=== PATIENT | male | born 1975 | race Caucasian/White ===

== ENCOUNTER 2017-06-29 23:20 | Emergency (ER) | payer SELFPAY ==
[2017-06-30] MEDS ORDERED: MOTRIN PO ONE ×2 (03:13→03:17)
--- NOTE | 2017-06-30 03:15 | Emergency Department Report ---
ED Extremity Problem HPI - General Chief complaint: Extremity Injury, Lower Stated complaint: BILATERAL FEET PAIN Time Seen by Provider: 06/30/17 03:00 Source: patient Mode of arrival: Ambulatory Limitations: No Limitations - History of Present Illness Initial comments: 42-year-old -[place] male comes in complaining of feet fungus and requesting information on substance abuse facilities. Patient denies any chest pain shortness of breathing or nausea no vomiting as admitted to abdominal cramping is intermittent. He reports he is able to hold down foods drinking and eating well. He reports that his feet have a fungus has not tried any over- the-counter medication. Past medical history of substance abuse. Has no other past medical history. Currently takes no medications on a daily basis has no known drug allergies. MD Complaint: extremity pain -: week(s) (2) Location: bilateral lower extremity, toe History of Same: No Severity scale (0 -10): 3 Improves with: nothing Worsens with: walking Associated Symptoms: rash (Between his toes) - Related Data Previous Rx's Medication Instructions Recorded Last Taken Type Calcium Acetate/Aluminum Sulf 1 each TP QDAY #3 packet 06/30/17 Unknown Rx [[place] Packet] Nystatin [Nystop Powder] 1 applicatio TP BID #1 bottle 06/30/17 Unknown Rx Allergies Allergy/AdvReac Type Severity Reaction Status Date / Time No Known Allergies Allergy Unverified 06/29/17 23:42 ED Review of Systems ROS: Stated complaint: BILATERAL FEET PAIN Other details as noted in HPI Constitutional: denies: chills, fever Respiratory: denies: cough, shortness of breath, wheezing Cardiovascular: denies: chest pain, palpitations Gastrointestinal: abdominal pain (intermittent abdominal cramping) Skin: rash (between his toes) Neurological: denies: headache, weakness, paresthesias Psychiatric: denies: anxiety, depression Hematological/Lymphatic: denies: easy bleeding, easy bruising ED Past Medical Hx - Past Medical History Previous Medical History?: No - Surgical History Past Surgical History?: No - Social History Smoking Status: Current Every Day Smoker Substance Use Type: Cocaine - Medications Home Medications: Home Medications Medication Instructions Recorded Confirmed Last Taken Type Calcium Acetate/Aluminum Sulf 1 each TP QDAY #3 packet 06/30/17 Unknown Rx [[place] Packet] Nystatin [Nystop Powder] 1 applicatio TP BID #1 bottle 06/30/17 Unknown Rx ED Physical Exam - General Limitations: No Limitations General appearance: alert, in no apparent distress, other (un kept) - Head Head exam: Present: atraumatic, normocephalic - Eye Eye exam: Present: normal appearance - ENT ENT exam: Present: mucous membranes moist - Neck Neck exam: Present: normal inspection - Respiratory Respiratory exam: Present: normal lung sounds bilaterally. Absent: respiratory distress - Cardiovascular Cardiovascular Exam: Present: regular rate, normal rhythm. Absent: systolic murmur, diastolic murmur, rubs, gallop - Neurological Exam Neurological exam: Present: alert, oriented X3 - Psychiatric Psychiatric exam: Present: normal affect, normal mood - Skin Skin exam: Present: rash (bilateral between toes very moist with hypopigmented tissue with cracks in between the toes) ED Course Vital Signs 06/29/17 23:36 Temperature 98.4 F Pulse Rate 86 Blood Pressure 127/86 O2 Sat by Pulse 98 Oximetry ED Medical Decision Making - Medical Decision Making Patient has been evaluated by this provider in fast track. Discussed the patient to get [id number] [place] soaks. He continues nystatin powder that I will prescribe for him. I will refer him to [facility] drug and alcohol medical stabilization services. Critical care attestation.: If time is entered above; I have spent that time in minutes in the direct care of this critically ill patient, excluding procedure time. ED Disposition Clinical Impression: Cocaine abuse, Tinea pedis of both feet Disposition: DC-01 TO HOME OR SELFCARE Is pt being admited?: No Does the pt Need Aspirin: No Condition: Stable Instructions: Tinea Pedis (ED), Polysubstance Abuse (ED) Additional Instructions: Please keep your feet clean and dry. Please replace her socks and shoes. Please use antifungal powder to your feet twice a day. Please use that soaks daily for the next 3 days. Follow-up with your primary care provider if symptoms persist or gets worse. I have referred you a drug and alcohol medical stabilization services called [facility] here at [facility]. Please give them a call first thing in the morning they open up at 8 AM. To discuss regarding getting into a treatment center. Prescriptions: Calcium Acetate/Aluminum Sulf [[place] Packet] 1 each TP QDAY #3 packet Nystatin [Nystop Powder] 1 applicatio TP BID #1 bottle Referrals: PRIMARY CAREMD [Primary Care Provider] - 3-5 Days YENY PITTMAN MD [Staff Physician] - 3-5 Days [facility] [Provider Group] - 3-5 Days [facility] [Other] - 3-5 Days
[2017-06-30 03:42] VITALS: BP 124/80
== END 2017-06-30 03:42 | disposition home or self-care (01) ==
LOC: ED 23:20
DX: B35.3 Tinea pedis (principal); F14.10 Cocaine abuse, uncomplicated; F17.200 Nicotine dependence, unspecified, uncomplicated
CPT/HCPCS: 99282